=== PATIENT | female | born 1955 | race Hispanic/Latino ===

== ENCOUNTER → 2022-04-14 | Outpatient (CLI) | payer MEDICARE ==
[~2022-04-14] MED LIST: ALLEGRA ALLERGY60 MG PO; ASPIRIN81 MG PO; CETIRIZINE HCL10 M1 PO; SYNTHROID25 MCG PO
== END ==
LOC: MRI 07:39
PROVIDERS: ATTEND Specialist
DX: S83.251A Bucket-handle tear of lateral meniscus, current injury, right knee, initial encounter (principal)